=== PATIENT | female | born 1995 | race Hispanic/Latino ===

== ENCOUNTER 2024-11-18 04:47 | Emergency (ER) | payer SELFPAY ==
[2024-11-18] VITALS (7 sets, daily range): BP systolic 96–132; BP diastolic 49–67; BMI 44.5
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
[2024-11-18] MEDS: TORADOL 15 MG IV (06:28)
[2024-11-18 06:52] LABS: HCG, Serum Qualitative Screen Negative
[2024-11-18 06:57] LABS: ALT (SGPT) 37 U/L (0-35); AST (SGOT) 25 U/L (14-36); Albumin 4.6 g/dl (3.5-5.0); Alkaline Phosphatase 118 U/L (38-126); Blood Urea Nitrogen 5 mg/dl (7-17); Calcium 8.9 mg/dl (8.4-10.2); Carbon Dioxide 21 mmol/L (22-30); Chloride 111 mmol/L (98-107); Estimated Creatinine Clearance > 125 ml/min; Glucose 114 mg/dl (70-99); Potassium 4.1 mmol/L (3.5-5.1); Sodium 146 mmol/L (135-145); Total Protein 8.6 g/dl (6.3-8.2); eGFR > 60.00
== END 2024-11-18 08:37 | disposition home or self-care (01) ==
LOC: EMR 04:47
PROVIDERS: EMERGENCY PHYSICIAN Emergency Medicine
DX: S39.91XA Unspecified injury of abdomen, initial encounter (principal); Y09 Assault by unspecified means; Z98.891 History of uterine scar from previous surgery
CPT/HCPCS: 99284; 96374; 74177; 80048; 80053; 84703; Q9967